=== PATIENT | female | born 1970 | race Caucasian/White ===

== ENCOUNTER → 2017-02-21 | Outpatient (CLI) | payer OTHER ==
[2017-02-21 12:00] LABS: Basophils % (A) 1 %; CHCM 35.1; Eosinophils # (A) 0.1 k/uL (0-0.7); Eosinophils % (A) 1 %; HCT 40.1 % (34.0-46.0); HDW 2.77; HGB 14.1 gm/dL (11.4-16.0); Luc # (Auto) 0.17; Luc % (Auto) 2; Lymphocytes # (A) 1.4 k/uL (1.0-4.8); Lymphocytes % (A) 18 %; MCV 82.8 fL (80.0-100.0); Mean Platelet Volume 7.3; Monocytes # (A) 0.4 k/uL (0-1.0); Monocytes % (A) 5 %; Neutrophils # (A) 5.8 k/uL (1.3-7.7); Neutrophils % (A) 74 %; RBC 4.84 m/uL (3.80-5.40); WBC 7.9 k/uL (3.8-10.6); WBC (Perox) 8.28
== END | disposition home or self-care (01) ==
LOC: LABWHC1 11:20
PROVIDERS: ATTEND Family Medicine
DX: R63.5 Abnormal weight gain (principal)
CPT/HCPCS: 36415; 85025

== ENCOUNTER 2017-02-26 15:00 | Emergency (ER) | payer OTHER ==
--- NOTE | 2017-02-26 16:03 | ED ---
GI Bleed HPI - General Source: patient, RN notes reviewed Mode of arrival: ambulatory Limitations: no limitations - History of Present Illness MD complaint: gross hematochezia <Edmundo Wolfe - Last Filed: 02/26/17 17:23> <Luis Angel Trujillo - Last Filed: 02/26/17 17:31> - General Chief complaint: GI Bleed Stated complaint: Abd Pain Time Seen by Provider: 02/26/17 15:30 - History of Present Illness Initial comments: This is a 46-year-old female who is currently in the process of being worked up for lupus who is had some abdominal issues over the years who complains the onset of bright red blood in the toilet today. She also is had left lower quadrant abdominal pain. She does have a family history of diverticulitis and diverticulosis but she has never had this herself. She also had a colonoscopy years ago she states which apparently was unremarkable. She denies any fevers chills nausea vomiting sweats she does have a history of some hemorrhoids but does not know whether this is where the blood is coming from. (Edmundo Wolfe) - Related Data Home Medications Medication Instructions Recorded Confirmed Ergocalciferol [Vitamin D2] 50,000 unit PO TU 02/26/17 02/26/17 Mupirocin 2% Oint [Bactroban 2% 1 applic TOPICAL TID 02/26/17 02/26/17 Oint] Allergies Allergy/AdvReac Type Severity Reaction Status Date / Time amoxicillin Allergy Rash/Hives Verified 02/26/17 16:30 mold Allergy Rash/Hives Verified 02/26/17 16:30 tomato Allergy Rash/Hives Verified 02/26/17 16:30 prochlorperazine edisylate AdvReac Severe Anxiety Verified 02/26/17 16:30 [From Compazine] prochlorperazine maleate AdvReac Severe Anxiety Verified 02/26/17 16:30 [From Compazine] Milk Containing Products AdvReac Nausea & Verified 02/26/17 16:30 Vomiting & Diarrhea Review of Systems ROS Other: All systems not noted in ROS Statement are negative. <Edmundo Wolfe - Last Filed: 02/26/17 17:23> ROS Other: All systems not noted in ROS Statement are negative. <Luis Angel Trujillo - Last Filed: 02/26/17 17:31> ROS Statement: Those systems with pertinent positive or pertinent negative responses have been documented in the HPI. Past Medical History Additional Past Medical History / Comment(s): Low vitamin D History of Any Multi-Drug Resistant Organisms: None Reported Past Surgical History: Orthopedic Surgery Past Psychological History: No Psychological Hx Reported Smoking Status: Never smoker Past Alcohol Use History: None Reported Past Drug Use History: None Reported <Edmundo Wolfe - Last Filed: 02/26/17 17:23> General Exam Limitations: no limitations General appearance: alert, in no apparent distress Head exam: Present: atraumatic, normocephalic, normal inspection Eye exam: Present: normal appearance, PERRL, EOMI. Absent: scleral icterus, conjunctival injection, periorbital swelling ENT exam: Present: normal exam, mucous membranes moist Neck exam: Present: normal inspection. Absent: tenderness, meningismus, lymphadenopathy Respiratory exam: Present: normal lung sounds bilaterally. Absent: respiratory distress, wheezes, rales, rhonchi, stridor Cardiovascular Exam: Present: regular rate, normal rhythm, normal heart sounds. Absent: systolic murmur, diastolic murmur, rubs, gallop, clicks GI/Abdominal exam: Present: soft, tenderness (Some left lower quadrant tenderness palpation of guarding rebound), normal bowel sounds. Absent: distended, guarding, rebound, rigid Rectal exam: Present: heme (+) stool, other (External hemorrhoids are present are nontender to palpation. No evidence of any bleeding at this time from the hemorrhoids. There was some gross blood on my fingertip upon rectal exam using a gloved hand.) Extremities exam: Present: normal inspection, full ROM, normal capillary refill. Absent: tenderness, pedal edema, joint swelling, calf tenderness Back exam: Present: normal inspection Neurological exam: Present: alert, oriented X3, CN II-XII intact Psychiatric exam: Present: normal affect, normal mood Skin exam: Present: warm, dry, intact, normal color. Absent: rash <Edmundo Wolfe - Last Filed: 02/26/17 17:23> <Luis Angel Trujillo - Last Filed: 02/26/17 17:31> - General Exam Comments Initial Comments: This is a well-developed well-nourished awake alert oriented 3 female (Edmundo Wolfe) Course <Edmundo Wolfe - Last Filed: 02/26/17 17:23> <Luis Angel Trujillo - Last Filed: 02/26/17 17:31> Vital Signs 02/26/17 15:03 Temperature 97.5 F L Pulse Rate 85 Respiratory 20 Rate Blood Pressure 147/86 O2 Sat by Pulse 99 Oximetry - Reevaluation(s) Reevaluation #1: 02/26/17 17:23 The patient is endorsed to Dr. Trujillo who will make the final disposition (Edmundo Wolfe) Medical Decision Making - Lab Data Result diagrams: 02/26/17 15:25 02/26/17 15:25 <Edmundo Wolfe - Last Filed: 02/26/17 17:23> - Lab Data Result diagrams: 02/26/17 15:25 02/26/17 15:25 <Luis Angel Trujillo - Last Filed: 02/26/17 17:31> - Medical Decision Making CT shows no acute findings. I went back into reevaluate the patient she stated she was feeling very good her pain was reasonable and she felt as if she could go home and follow up with her primary medical care doctor. (Luis Angel Trujillo) - Lab Data Lab Results 02/26/17 02/26/17 02/26/17 Range/Units 15:25 15:25 15:25 WBC 7.7 (3.8-10.6) k/uL RBC 4.74 (3.80-5.40) m/uL Hgb 13.4 (11.4-16.0) gm/dL Hct 39.0 (34.0-46.0) % MCV 82.3 (80.0-100.0) fL MCH 28.2 (25.0-35.0) pg MCHC 34.3 (31.0-37.0) g/dL RDW 13.0 (11.5-15.5) % Plt Count 286 (150-450) k/uL Neutrophils % 73 % Lymphocytes % 20 % Monocytes % 4 % Eosinophils % 1 % Basophils % 1 % Neutrophils # 5.6 (1.3-7.7) k/uL Lymphocytes # 1.5 (1.0-4.8) k/uL Monocytes # 0.3 (0-1.0) k/uL Eosinophils # 0.1 (0-0.7) k/uL Basophils # 0.0 (0-0.2) k/uL PT (9.0-12.0) sec INR (<1.1) APTT (22.0-30.0) sec Sodium 142 (137-145) mmol/L Potassium 3.6 (3.5-5.1) mmol/L Chloride 105 (98-107) mmol/L Carbon Dioxide 24 (22-30) mmol/L Anion Gap 13 mmol/L BUN 15 (7-17) mg/dL Creatinine 0.69 (0.52-1.04) mg/dL Est GFR (MDRD) Af Amer >60 (>60 ml/min/1.73 sqM) Est GFR (MDRD) Non-Af >60 (>60 ml/min/1.73 sqM) Glucose 101 H (74-99) mg/dL Calcium 9.4 (8.4-10.2) mg/dL Total Bilirubin 0.5 (0.2-1.3) mg/dL AST 18 (14-36) U/L ALT 26 (9-52) U/L Alkaline Phosphatase 60 (38-126) U/L Total Creatine Kinase 40 (30-135) U/L CK-MB (CK-2) 0.4 (0.0-2.4) ng/mL CK-MB (CK-2) Rel Index 1.0 Troponin I <0.012 (0.000-0.034) ng/mL Total Protein 7.3 (6.3-8.2) g/dL Albumin 4.2 (3.5-5.0) g/dL Amylase 65 (30-110) U/L Lipase 152 (23-300) U/L Stool Occult Blood (Negative) 02/26/17 02/26/17 Range/Units 15:25 15:25 WBC (3.8-10.6) k/uL RBC (3.80-5.40) m/uL Hgb (11.4-16.0) gm/dL Hct (34.0-46.0) % MCV (80.0-100.0) fL MCH (25.0-35.0) pg MCHC (31.0-37.0) g/dL RDW (11.5-15.5) % Plt Count (150-450) k/uL Neutrophils % % Lymphocytes % % Monocytes % % Eosinophils % % Basophils % % Neutrophils # (1.3-7.7) k/uL Lymphocytes # (1.0-4.8) k/uL Monocytes # (0-1.0) k/uL Eosinophils # (0-0.7) k/uL Basophils # (0-0.2) k/uL PT 10.9 (9.0-12.0) sec INR 1.1 (<1.1) APTT 25.9 (22.0-30.0) sec Sodium (137-145) mmol/L Potassium (3.5-5.1) mmol/L Chloride (98-107) mmol/L Carbon Dioxide (22-30) mmol/L Anion Gap mmol/L BUN (7-17) mg/dL Creatinine (0.52-1.04) mg/dL Est GFR (MDRD) Af Amer (>60 ml/min/1.73 sqM) Est GFR (MDRD) Non-Af (>60 ml/min/1.73 sqM) Glucose (74-99) mg/dL Calcium (8.4-10.2) mg/dL Total Bilirubin (0.2-1.3) mg/dL AST (14-36) U/L ALT (9-52) U/L Alkaline Phosphatase (38-126) U/L Total Creatine Kinase (30-135) U/L CK-MB (CK-2) (0.0-2.4) ng/mL CK-MB (CK-2) Rel Index Troponin I (0.000-0.034) ng/mL Total Protein (6.3-8.2) g/dL Albumin (3.5-5.0) g/dL Amylase (30-110) U/L Lipase (23-300) U/L Stool Occult Blood Positive H (Negative) Disposition <Edmundo Wolfe - Last Filed: 02/26/17 17:23> Time of Disposition: 17:31 <Luis Angel Trujillo - Last Filed: 02/26/17 17:31> Clinical Impression: Rectal bleeding Disposition: HOME SELF-CARE Instructions: Gastrointestinal Bleeding (ED) Referrals: Catie Blackmon MD [Primary Care Provider] - 1-2 days
[2017-02-26 16:08] LABS: Basophils % (A) 1 %; CH 28.7; Eosinophils # (A) 0.1 k/uL (0-0.7); Eosinophils % (A) 1 %; HDW 2.73; HGB 13.4 gm/dL (11.4-16.0); Luc # (Auto) 0.14; Luc % (Auto) 2; Lymphocytes # (A) 1.5 k/uL (1.0-4.8); Lymphocytes % (A) 20 %; MCH 28.2 pg (25.0-35.0); MCHC 34.3 g/dL (31.0-37.0); MCV 82.3 fL (80.0-100.0); Mean Platelet Volume 6.8; Monocytes # (A) 0.3 k/uL (0-1.0); Monocytes % (A) 4 %; Neutrophils # (A) 5.6 k/uL (1.3-7.7); Neutrophils % (A) 73 %; RBC 4.74 m/uL (3.80-5.40); WBC 7.7 k/uL (3.8-10.6); WBC (Perox) 7.81
[2017-02-26 16:17] LABS: ALT 26 U/L (9-52); AST 18 U/L (14-36); Alkaline Phosphatase 60 U/L (38-126); Amylase 65 U/L (30-110); Anion Gap 13 mmol/L; Blood Urea Nitrogen 15 mg/dL (7-17); Calcium 9.4 mg/dL (8.4-10.2); Carbon Dioxide 24 mmol/L (22-30); Chloride 105 mmol/L (98-107); Glucose 101 mg/dL (74-99); INR 1.1 (<1.1); Non-African American GFR(MDRD) >60 (>60 ml/min/1.73 sqM); Partial Thromboplastin Time 25.9 sec (22.0-30.0); Potassium 3.6 mmol/L (3.5-5.1); Prothrombin Time 10.9 sec (9.0-12.0); Sodium 142 mmol/L (137-145); Total Bilirubin 0.5 mg/dL (0.2-1.3); Total Protein 7.3 g/dL (6.3-8.2)
--- NOTE | 2017-02-26 16:20 | XR ---
EXAMINATION TYPE: XR abdomen 1V DATE OF EXAM ORDERED: 02/26/2017 4:14 PM HISTORY: Pain. COMPARISON: Previous study dated 05/23/2009. FINDINGS: The abdominal gas pattern is normal. There is no evidence of obstruction or free air. No u nusual calcifications are seen. IMPRESSION: NORMAL ABDOMEN.
--- NOTE | 2017-02-26 16:21 | XR ---
EXAMINATION TYPE: XR chest 2V DATE OF EXAM ORDERED: 02/26/2017 4:14 PM HISTORY: cough. REFERENCE: None. FINDINGS: The lungs are clear. Pleural spaces are clear. Heart size is normal. IMPRESSION: NORMAL CHEST.
[2017-02-26] MEDS ORDERED: RX INFO: IV CONTRAST WAS GIVEN 1 EACH MISC MISCELLANE PRN (16:41)
[2017-02-26 16:49] LABS: Creatine Kinase 40 U/L (30-135)
[2017-02-26] MEDS ORDERED: DICYCLOMINE 10 MG/ML 2 ML AMP IM STA (16:54)
[2017-02-26 17:01] LABS: Creatine Kinase MB 0.4 ng/mL (0.0-2.4); Troponin I <0.012 ng/mL (0.000-0.034)
--- NOTE | 2017-02-26 17:22 | CT ---
EXAMINATION TYPE: CT abdomen pelvis w con DATE OF EXAM: 02/26/2017 5:12 PM HISTORY: Bright red rectal bleeding today. Cramping and bloating. CT DLP: 1407.30mGycm Automated Exposure Control for Dose Reduction was Utilized. CONTRAST: CT scan of the abdomen and pelvis is performed without oral but with IV Contrast, patient injected wi th 100 mL of Omnipaque 300. COMPARISON: None. FINDINGS: LUNG BASES: No significant abnormality is appreciated. LIVER/GB: There are several simple appearing thin-walled cysts scattered throughout the liver. PANCREAS: No significant abnormality is seen. SPLEEN: Spleen is enlarged measuring 14.2 cm on long axis on axial image 18. There is 1 cm splenule i n the splenic hilum on axial image 23. ADRENALS: No significant abnormality is seen. KIDNEYS: There are subcentimeter low dense lesion anteriorly lower pole level right kidney on series 7 image 39 is too small to further characterize per presumed benign. BOWEL: The evaluation of bowel is suboptimal due to lack of enteric contrast. There is debris filled stomach suggesting recent meal ingestion. There is no suspicious small or large bowel dilatation seen . Normal-appearing appendix is seen from cecum. There is mild wall thickening in the transverse colon favor product of poor distention but a colitis is not entirely excluded. Clinical correlation advise d. UTERUS/ADNEXA: Left-sided pelvic phlebolith is noted. LYMPH NODES: No greater than 1cm abdominal or pelvic lymph nodes are appreciated. OSSEOUS STRUCTURES: No significant abnormality is seen. OTHER: No significant additional abnormality is seen. IMPRESSION: No significant acute finding is clearly seen to account for patient's clinical symptoms. Cannot entirely exclude mild colitis involving the transverse colon though finding is more likely on basis of poor distention. Clinical correlation advised.
[2017-02-26 17:48] VITALS: BP 132/68; PULSE 80; RESP 16; TEMP 98
== END 2017-02-26 18:02 | disposition home or self-care (01) ==
LOC: EC 15:00
DX: K64.4 Residual hemorrhoidal skin tags (principal); R10.32 Left lower quadrant pain; Z79.899 Other long term (current) drug therapy; Z88.0 Allergy status to penicillin; Z88.8 Allergy status to other drugs, medicaments and biological substances; Z91.011 Allergy to milk products; Z91.018 Allergy to other foods; Z91.09 Other allergy status, other than to drugs and biological substances; Z86.39 Personal history of other endocrine, nutritional and metabolic disease; Z83.79 Family history of other diseases of the digestive system; Z98.890 Other specified postprocedural states
CPT/HCPCS: 99285; 96372; 36415; 86900; 86901; 80053; 82150; 82550; 82553; 83690; 84484; 85025; 85610; 85730; 86850; 82272; 71020; 74000; 74177; J0500; Q9967

== ENCOUNTER → 2017-03-12 | Outpatient (CLI) | payer OTHER ==
--- NOTE | 2017-03-12 10:42 | XR ---
EXAMINATION TYPE: XR Hip Complete RT DATE OF EXAM: 03/12/2017 10:20 AM COMPARISON: NONE HISTORY: Pain TECHNIQUE: 2 views submitted FINDINGS: There is no evidence of erosive change or acute fracture. IMPRESSION: 1. No evidence of acute fracture or dislocation. If symptoms persist consider MRI.
--- NOTE | 2017-03-12 10:43 | XR ---
EXAM TYPE: LUMBAR SPINE X RAY SERIES COMPARISON: NONE HISTORY: Pain TECHNIQUE: 4 views are submitted. FINDINGS: Alignment is anatomic. The pedicles are intact. The transverse processes are intact. There is no s pondylolysis or spondylolisthesis. Hypertrophic changes are seen throughout the vertebral column. Th ere is facet arthropathy at L3-4, L4-5 and L5-S1. IMPRESSION: 1. Multilevel hypertrophic change and facet arthropathy. Consider MRI of the lumbar spine..
== END | disposition home or self-care (01) ==
LOC: RADXRMAIN 09:59
PROVIDERS: ATTEND Family Medicine
DX: M46.96 Unspecified inflammatory spondylopathy, lumbar region (principal); M46.97 Unspecified inflammatory spondylopathy, lumbosacral region
CPT/HCPCS: 72110; 73502

== ENCOUNTER → 2017-03-20 | Outpatient (CLI) | payer OTHER ==
[2017-03-20 11:43] LABS: Hepatitis B Surface Ag Index 0.07
[2017-03-20 12:00] LABS: Hepatitis C Virus IgG Index 0.04
[2017-03-20 12:19] LABS: Hepatitis C Virus IgG Ab Negative (Negative)
[2017-03-21 07:56] LABS: HIV-1/HIV-2 Ab Screen NONREAC (NON REAC)
[2017-03-21 15:07] LABS: Hepatits C Virus RNA, Quant <12 IU/mL (<12); LOG HCV IU/mL <1.08 (<1.08)
== END | disposition home or self-care (01) ==
LOC: LABWHC1 10:09
PROVIDERS: ATTEND Family Medicine
DX: L81.8 Other specified disorders of pigmentation (principal)
CPT/HCPCS: 36415; 86780; 86803; 87340; 87389; 87522

== ENCOUNTER → 2017-04-18 | Outpatient (CLI) | payer OTHER ==
--- NOTE | 2017-04-18 09:25 | MR ---
EXAMINATION TYPE: MR lumbar spine wo con DATE OF EXAM: 04/18/2017 9:16 AM COMPARISON: NONE HISTORY: lumbago TECHNIQUE: T1 and T2 axial and sagittal images of the lumbar spine are submitted. FINDINGS: There is no abnormal signal seen within the visualized spinal cord or paraspinal soft tissu es. Simple left renal cyst noted. At L1-2 there is right paracentral disc bulging but no canal stenosis or foraminal encroachment. At L2-3 there is right paracentral disc bulging with mild effacement of thecal sac. Mild hypertrophy of the facets. No Canal stenosis. Neural foramina are preserved. At L3-4 there is extensive facet arthropathy with no canal stenosis or focal herniation. No neural fo raminal encroachment. At L4-5 there is broad-based central disc bulging but no canal stenosis or foraminal encroachment. De generative disc disease. At L5-S1 there is right paracentral small disc protrusion but no definite nerve root contact or mike inal encroachment. IMPRESSION: 1. Right paracentral tiny disc protrusion L5-S1 but no foraminal encroachment or canal stenosis. 2. Multilevel mild degenerative disc disease with multilevel facet arthropathy. No Canal stenosis. 3. Disc bulging L4-5, L1-L2 and L2-3 with no evidence of nerve root impingement.
== END | disposition home or self-care (01) ==
LOC: RADMRIMAIN 08:45
PROVIDERS: ATTEND Family Medicine
DX: M51.27 Other intervertebral disc displacement, lumbosacral region (principal); M51.36 Other intervertebral disc degeneration, lumbar region; M46.96 Unspecified inflammatory spondylopathy, lumbar region
CPT/HCPCS: 72148

== ENCOUNTER 2017-06-20 09:38 | Day surgery (SDC) | payer OTHER ==
[2017-06-18 10:45] VITALS: BMI 33.0
[~2017-06-20 09:38] MED LIST: LACTATED RINGERS 1,000 ML IV SCH
[2017-06-20 10:08] VITALS: PULSE 78; RESP 18; TEMP 98.3
[2017-06-20] MEDS ORDERED: LACTATED RINGERS 1,000 ML IV ONE (10:19)
[2017-06-20] MEDS ORDERED: LIDOCAINE 1% 20 ML VIAL (10MG/ML) FOR IV START INTRADERMA ONE (10:20)
[2017-06-20] MEDS ORDERED: PROPOFOL 10 MG/ML 20 ML VIAL IV ONE (11:01)
--- NOTE | 2017-06-20 11:20 | P.PCN ---
Date of Procedure: 06/20/17 Preoperative Diagnosis: Postoperative Diagnosis: Procedure(s) Performed: BRIEF HISTORY: Patient is a 47-year-old pleasant female, scheduled for an elective colonoscopy as a part of abdominal pain, change in bowel habits and intermittent rectal bleeding for the last several months duration. PROCEDURE PERFORMED: Colonoscopy. PREOPERATIVE DIAGNOSIS: Change in bowel habits, abdominal pain and intermittent rectal bleeding. IV sedation per Anesthesia. PROCEDURE: After informed consent was obtained, the patient, was brought into the endoscopy unit. IV sedation was administered by Anesthesia under continuous monitoring. Digital rectal examination was normal. Initially the Olympus CF- 160 flexible video colonoscope was then inserted in the rectum, gradually advanced into the cecum without any difficulty. Careful examination was performed as the scope was gradually being withdrawn. Ileocecal valve and the appendiceal orifice were visualized and appeared normal. Prep was excellent. Mucosa of the cecum, ascending colon, transverse colon, descending colon, sigmoid colon, and rectum appeared normal. Retroflexion was performed in the rectum and no lesions were seen. The patient tolerated the procedure well. IMPRESSION: Normal-appearing colon from rectum to cecum with no evidence of colorectal neoplasia . RECOMMENDATIONS: Findings of this examination were discussed with the patient as well as her family. She was advised to be a high-fiber diet, take fiber supplements a regular basis and avoid straining and constipation. She can have a repeat colonoscopy in 10 years. Implants: Indications for Procedure: Operative Findings: Description of Procedure:
[2017-06-20 11:59] VITALS: BP 134/72
== END 2017-06-20 12:15 | disposition home or self-care (01) ==
LOC: ORWHC2ENDO 09:38
PROVIDERS: ATTEND Internal Medicine Gastroenterology
DX: R10.9 Unspecified abdominal pain (principal); R19.4 Change in bowel habit; K62.5 Hemorrhage of anus and rectum; M19.90 Unspecified osteoarthritis, unspecified site; Z79.899 Other long term (current) drug therapy; Z88.0 Allergy status to penicillin; Z88.8 Allergy status to other drugs, medicaments and biological substances
CPT/HCPCS: 81025; 45378; J2704

== ENCOUNTER 2018-02-01 08:26 | Emergency (ER) | payer OTHER ==
[2018-02-01 08:31] VITALS: RESP 16; TEMP 98.5
[2018-02-01] MEDS ORDERED: PROPARACAINE 0.5% OPHTH DROPS 15 ML BTL LEFT EYE STA (08:51)
--- NOTE | 2018-02-01 08:53 | ED ---
Eye Problem HPI - General Chief complaint: Eye Problems Stated complaint: LEFT EYE PAIN, LEFT HEAD PAIN Time Seen by Provider: 02/01/18 08:34 Source: patient, RN notes reviewed, old records reviewed Mode of arrival: ambulatory Limitations: no limitations - History of Present Illness Initial comments: This patient is a 47-year-old female presents emergency Department chief complaint of a few days of left eye pain. She reports that she's noticed a white spot over her visual field over the past day. She does wear contacts. She states she's been wearing her contacts off and on for the past week. Her eye is sensitive to light. She's been undergoing sinusitis, was on Levaquin and finished her antibiotics a few days ago. She reports that she still having some ear popping and congestion. She is concerned that maybe her eye pain was related to her sinus congestion. Patient states she's had no fever or chills. She reports that she has no pain or constriction of extraocular eye movements. - Related Data Home Medications Medication Instructions Recorded Confirmed Ergocalciferol [Vitamin D2] 50,000 unit PO Q14D 02/26/17 02/01/18 Previous Rx's Medication Instructions Recorded Moxifloxacin [Vigamox 0.3%] 1 drop LEFT EYE Q2H #1 bottle 02/01/18 Allergies Allergy/AdvReac Type Severity Reaction Status Date / Time amoxicillin Allergy Rash/Hives Verified 02/01/18 09:33 mold Allergy Rash/Hives Verified 02/01/18 09:33 tomato Allergy Rash/Hives Verified 02/01/18 09:33 prochlorperazine edisylate AdvReac Severe Anxiety Verified 02/01/18 09:33 [From Compazine] prochlorperazine maleate AdvReac Severe Anxiety Verified 02/01/18 09:33 [From Compazine] Milk Containing Products AdvReac Nausea & Verified 02/01/18 09:33 Vomiting & Diarrhea Review of Systems ROS Statement: Those systems with pertinent positive or pertinent negative responses have been documented in the HPI. ROS Other: All systems not noted in ROS Statement are negative. Past Medical History Additional Past Medical History / Comment(s): Low vitamin D. RECENT RECTAL BLEEDING AND ABD. PAIN History of Any Multi-Drug Resistant Organisms: None Reported Past Surgical History: Orthopedic Surgery Additional Past Surgical History / Comment(s): RT GREAT TOE PIN AND BUNIONECTOMY. COLONOSCOPY Past Anesthesia/Blood Transfusion Reactions: No Reported Reaction Past Psychological History: No Psychological Hx Reported Smoking Status: Never smoker - Past Family History Mother Family Medical History: No Reported History General Exam - General Exam Comments Initial Comments: This patient is a 47-year-old female. No distress. Limitations: no limitations General appearance: alert, in no apparent distress Head exam: Present: atraumatic, normocephalic, normal inspection Eye exam: Present: PERRL, EOMI, conjunctival injection (Left eye conjunctival injection. Evidence of what appears to be a corneal ulcer at the 12 o'clock position of the eye.). Absent: normal appearance, scleral icterus, periorbital swelling Expanded Eyelids: Erythema: Left (conjunctival injection) Pupils: Regular, Round: Bilateral Sclera/Conjunctival: Injection: Left (Patient has 2mm corneal ulcerat at 12 oclock position) Anterior chamber: Normal Inspection: Bilateral Posterior chamber: Deferred: Bilateral Visual acuity (R) = 20/: 20 Visual acuity (L) = 20/: 50 IOP (R) in mmH IOP (L) in mmH IOP measured with: [employer] ENT exam: Present: normal exam, mucous membranes moist Neck exam: Present: normal inspection. Absent: tenderness, meningismus, lymphadenopathy Respiratory exam: Present: normal lung sounds bilaterally. Absent: respiratory distress, wheezes, rales, rhonchi, stridor Cardiovascular Exam: Present: regular rate, normal rhythm, normal heart sounds. Absent: systolic murmur, diastolic murmur, rubs, gallop, clicks GI/Abdominal exam: Present: soft, normal bowel sounds. Absent: distended, tenderness, guarding, rebound, rigid Back exam: Present: normal inspection Neurological exam: Present: alert, oriented X3, CN II-XII intact Psychiatric exam: Present: normal affect, normal mood Skin exam: Present: warm, dry, intact, normal color. Absent: rash Course Vital Signs 02/01/18 02/01/18 08:27 10:04 Temperature 98.5 F Pulse Rate 89 70 Respiratory 16 16 Rate Blood Pressure 144/63 138/78 O2 Sat by Pulse 97 98 Oximetry Medical Decision Making - Medical Decision Making This patient is a 47-year-old female presents emergency Department chief complaint of a few days of left eye pain. She reports that she's noticed a white spot over her visual field over the past day. She does wear contacts. She states she's been wearing her contacts off and on for the past week. Her eye is sensitive to light. She's been undergoing sinusitis, was on Levaquin and finished her antibiotics a few days ago. Without slit lamp, I am able to visualize a 2mm ulceration at 12 oclock position of eye. Visual acuity is 20/50 L eye, 20/20 R eye. Patient has no pain with EOM. Normal IOP. Slit lamp shows no hyphema, or abnormalities in anterior chamber. Patient case discussed with Dr. Tejada, whom discussed with Dr. Dodd. He recommends vigamox drops every 2 hours, and will see patient in morning. Given Vigamox in ED, after Cipro drops previously ordered. Patient understands treatment plan and will comply, return parameters discussed. Disucssed no contacts. Patient understands treatment plan and will comply. Disposition Clinical Impression: Corneal ulcer of left eye, Uses contact lenses Disposition: HOME SELF-CARE Condition: Good Instructions: Corneal Ulcer (ED) Additional Instructions: Patient needs to follow-up promptly with community organization aide tomorrow morning. Return to the emergency department if any alarming signs or symptoms occur. Continue to take decongestant medications. Prescriptions: Moxifloxacin [Vigamox 0.3%] 1 drop LEFT EYE Q2H #1 bottle Referrals: Catie Blackmon MD [Primary Care Provider] - 1-2 days Charly Dodd MD [STAFF PHYSICIAN] - 1-2 days Time of Disposition: 09:53
[2018-02-01] MEDS ORDERED: CIPROFLOXACIN 0.3% OPHTH SOLN 5 ML BTL LEFT EYE STA (08:54)
[2018-02-01] MEDS ORDERED: MOXIFLOXACIN HCL 0.5% DROPS 3 ML BTL LEFT EYE ONE (09:35)
[2018-02-01 10:05] VITALS: BP 138/78; PULSE 70
== END 2018-02-01 09:23 | disposition home or self-care (01) ==
LOC: EC 08:26
DX: H16.002 Unspecified corneal ulcer, left eye (principal); Z97.3 Presence of spectacles and contact lenses; Z79.899 Other long term (current) drug therapy; Z88.0 Allergy status to penicillin; Z88.8 Allergy status to other drugs, medicaments and biological substances; Z91.011 Allergy to milk products; Z91.018 Allergy to other foods
CPT/HCPCS: 99283

== ENCOUNTER → 2018-04-08 | Outpatient (CLI) | payer OTHER ==
[2018-04-08 13:11] LABS: Basophils % (A) 1 %; Eosinophils # (A) 0.1 k/uL (0-0.7); Eosinophils % (A) 1 %; HCT 39.6 % (34.0-46.0); HGB 13.9 gm/dL (11.4-16.0); Lymphocytes # (A) 1.4 k/uL (1.0-4.8); Lymphocytes % (A) 17 %; MCH 27.9 pg (25.0-35.0); MCHC 35.1 g/dL (31.0-37.0); MCV 79.6 fL (80.0-100.0); Mean Platelet Volume 6.8; Monocytes # (A) 0.4 k/uL (0-1.0); Monocytes % (A) 4 %; Neutrophils # (A) 6.2 k/uL (1.3-7.7); Neutrophils % (A) 75 %; Platelet Count 287 k/uL (150-450); RBC 4.98 m/uL (3.80-5.40); RDW 12.6 % (11.5-15.5); WBC 8.2 k/uL (3.8-10.6)
[2018-04-08 13:41] LABS: ALT 29 U/L (9-52); AST 17 U/L (14-36); Albumin 4.1 g/dL (3.5-5.0); Alkaline Phosphatase 73 U/L (38-126); Anion Gap 12 mmol/L; Blood Urea Nitrogen 14 mg/dL (7-17); Calcium 9.5 mg/dL (8.4-10.2); Carbon Dioxide 25 mmol/L (22-30); Chloride 103 mmol/L (98-107); Glucose 88 mg/dL (74-99); Potassium 3.9 mmol/L (3.5-5.1); Sodium 140 mmol/L (137-145); Total Bilirubin 0.5 mg/dL (0.2-1.3); Total Protein 6.8 g/dL (6.3-8.2)
--- NOTE | 2018-04-08 14:57 | P.HPOB ---
History of Present Illness H&P Date: 04/08/18 Chief Complaint: The patient is here for her routine gynecologic exam and mammogram. This is a 47-year-old with an LMP of 03/31/2018. The patient states is been about one half years since her last pelvic exam. She is having regular monthly menstrual periods. She has been experiencing weight gain, fatigue, joint pain and exhaustion. She believes she is gained about 2 to 3 pounds per month over the last one year. She also seems to feel cold when other people are not cold. She is without gynecologic complaints. Review of Systems She believes she has gained about 30 pounds over the past year. She denies respiratory, cardiac, or G.I. problems. Past Medical History Additional Past Medical History / Comment(s): Low vitamin D. Fibromyalgia. 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 History of Any Multi-Drug Resistant Organisms: None Reported, MRSA (Buttock abscess in the past) Past Surgical History: Orthopedic Surgery Additional Past Surgical History / Comment(s): RT GREAT TOE PIN AND BUNIONECTOMY. COLONOSCOPY Past Anesthesia/Blood Transfusion Reactions: No Reported Reaction Past Psychological History: No Psychological Hx Reported Smoking Status: Never smoker Past Alcohol Use History: Occasional (1 to 2 per week) Past Drug Use History: Marijuana Additional History: She works for the [employer] in [facility]. She is single and has been with her boyfriend since approximately October 2017. She does not live with him. - Past Family History Mother Family Medical History: Asthma Additional Family Medical History / Comment(s): Cardiac valve problem. Father Family Medical History: Hypertension Additional Family Medical History / Comment(s): Great aunt had breast cancer. Medications and Allergies Home Medications Medication Instructions Recorded Confirmed Type Ergocalciferol [Vitamin D2] 50,000 unit PO Q14D 02/26/17 02/01/18 History Moxifloxacin [Vigamox 0.3%] 1 drop LEFT EYE Q2H #1 bottle 02/01/18 Rx Allergies Allergy/AdvReac Type Severity Reaction Status Date / Time amoxicillin Allergy Rash/Hives Verified 02/01/18 09:33 mold Allergy Rash/Hives Verified 02/01/18 09:33 tomato Allergy Rash/Hives Verified 02/01/18 09:33 prochlorperazine edisylate AdvReac Severe Anxiety Verified 02/01/18 09:33 [From Compazine] prochlorperazine maleate AdvReac Severe Anxiety Verified 02/01/18 09:33 [From Compazine] Milk Containing Products AdvReac Nausea & Verified 02/01/18 09:33 Vomiting & Diarrhea Exam - Vital Signs Vital signs: BP 122/77, height 5'6", weight 229 pounds, BMI 37, temperature 98.4, pulse 79. This is a well-developed well-nourished white female who is alert and oriented times 3 in no acute distress. HEENT: Within normal limits. NECK: Supple without mass or thyromegaly. CHEST AND LUNGS: Clear to auscultation. HEART: Regular rate and rhythm. BREASTS: Are without mass or discharge. AXILLARY EXAM: Negative for adenopathy. BACK: Negative for CVA tenderness. ABDOMEN: Soft, nontender, without palpable masses. PELVIC EXAM: Normal external genitalia. Cervix and vagina appear normal . Cervix appears multiparous. It does not appear inflamed but was slightly friable upon doing the Pap smear. There is no unusual discharge. There is no evidence of prolapse. The uterus is midposition, nongravid size and nontender. There are no palpable adnexal masses or tenderness. RECTAL EXAM: negative for mass or tenderness and is negative for occult blood. EXTREMITIES: Nontender. IMPRESSION: 1. 47 year old female with multiple nonspecific complaints. The complaints include fatigue, joint pain and weight gain. Differential diagnosis will include thyroid dysfunction, rheumatologic condition and anemia. I doubt these complaints are gynecologically related. I also doubt they are menopausal symptoms since he continues to have regular menses. 2. Normal gynecologic exam. PLAN: 1. Pap smear was performed. 2. Self breast awareness was discussed. 3. Remaining mammogram will be done today. 4. Since the patient has a new partner within the last year, STD screening will be done. This will include GC and Chlamydia testing from the cervix. Also blood tests will include HIV, RPR, hepatitis B surface antigen and hepatitis C antibody. 5. Other blood tests that will be done today will be CBC, TSH and comprehensive chem panel. 6. She will also follow up with her primary care physician about these symptoms. She states she does have an appointment with a warehouse production worker as well. 7. We have discussed control options including barrier methods, hormonal methods, IUD and sterilization. She states she will consider these options and will let me know if she chooses something other than condoms. In the meantime she will use condoms. 8. She will return in one year and PRN. Results Result Diagrams: 04/08/18 12:35 Abnormal Lab Results - Last 24 Hours (Table) 04/08/18 Range/Units 12:35 MCV 79.6 L (80.0-100.0) fL
[2018-04-08 21:12] LABS: HIV AB P24 Non-Reactive (Non-Reactive); HIV P24 AG Non-Reactive (Non-Reactive)
[2018-04-08 21:20] LABS: Hepatitis C IgG Antibody Non-Reactive (Non-Reactive)
--- NOTE | 2018-04-09 10:49 | MM ---
Reason for exam: screening (asymptomatic). Last mammogram was performed 1 year and 8 months ago. History: Patient had first child at age 32. Family history of breast cancer in grandmother and breast cancer in aunt. Took hormonal contraceptives for 19 years. Physical Findings: A clinical breast exam by your physician is recommended on an annual basis and results should be correlated with mammographic findings. MG 3D Screening Mammo W/Cad Bilateral CC and MLO view(s) were taken. Prior study comparison: August 07, 2016, bilateral MG screening mammo w CAD. December 29, 2012, bilateral digital screening mammo w/CAD. The breast tissue is heterogeneously dense. This may lower the sensitivity of mammography. No significant changes when compared with prior studies. ASSESSMENT: Benign, BI-RAD 2 RECOMMENDATION: Routine screening mammogram of both breasts in 1 year.
== END | disposition home or self-care (01) ==
LOC: WWCWWP 10:49
PROVIDERS: ATTEND Obstetrics & Gynecology
DX: Z12.31 Encounter for screening mammogram for malignant neoplasm of breast (principal); R53.83 Other fatigue; Z11.3 Encounter for screening for infections with a predominantly sexual mode of transmission
CPT/HCPCS: 77063; 77067; 80053; 84443; 85025; 86780; 86803; 87340; 87390

== ENCOUNTER → 2019-07-13 | Outpatient (CLI) | payer OTHER ==
[2019-07-13 09:48] VITALS: BP 115/66; PULSE 72; RESP 18; TEMP 98.9; BMI 35.5
--- NOTE | 2019-07-13 10:26 | P.HPOB ---
History of Present Illness H&P Date: 07/13/19 Chief Complaint: The patient is here for her routine gynecologic exam and ma mmogram. This is a 49-year-old with an LMP of 06/14/2019. The patient states her menstrual periods have been regular every month except in March when she missed one period. She has had the minimal hot flashes. She is without gynecologic complaints. She has noticed a chronic rash in the area of her previous MRSA near the buttock. She has also noticed a fatty lump on the inner left thigh. Review of Systems The patient has lost 9 pounds over the last year. She has been trying to exercise regularly. She denies respiratory, cardiac, or G.I. problems. Past Medical History Additional Past Medical History / Comment(s): Low vitamin D. Fibromyalgia. 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 History of Any Multi-Drug Resistant Organisms: MRSA Date of last positivie culture/infection: 2010 MDRO Source:: left buttock Past Surgical History: Orthopedic Surgery Additional Past Surgical History / Comment(s): RT GREAT TOE PIN AND BUNIONECTOMY. COLONOSCOPY Past Anesthesia/Blood Transfusion Reactions: No Reported Reaction Past Psychological History: No Psychological Hx Reported Smoking Status: Former smoker Past Alcohol Use History: Occasional (4 per month) Past Drug Use History: Marijuana (Brief use in the past.) Additional Drug Use History / Comment(s): Brief marijuana use in the past. The patient denies current use (07/13/19). Additional History: She is single and has been with her boyfriend since 2017. She does not live with him. 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 - Past Family History Mother Family Medical History: Asthma Additional Family Medical History / Comment(s): Cardiac valve problem. Father Family Medical History: Hypertension Additional Family Medical History / Comment(s): Great aunt had breast cancer. Medications and Allergies Home Medications Medication Instructions Recorded Confirmed Type Cholecalciferol (Vitamin D3) 10,000 unit PO HS 07/13/19 07/13/19 History [Vitamin D3] Allergies Allergy/AdvReac Type Severity Reaction Status Date / Time amoxicillin Allergy Rash/Hives Verified 07/13/19 09:39 mold Allergy Rash/Hives Verified 07/13/19 09:39 tomato Allergy Rash/Hives Verified 07/13/19 09:39 prochlorperazine edisylate AdvReac Severe Anxiety Verified 07/13/19 09:39 [From Compazine] prochlorperazine maleate AdvReac Severe Anxiety Verified 07/13/19 09:39 [From Compazine] Milk Containing Products AdvReac Nausea & Verified 07/13/19 09:39 Vomiting & Diarrhea Exam Vital Signs Temp Pulse Resp BP 07/13/19 09:41 98.9 F 72 18 115/66 Intake and Output 07/12/19 07/13/19 07/13/19 22:59 06:59 14:59 Other: Weight 99.79 kg Height 5'6", weight 220 pounds, BMI 35.5. This is a well-developed well-nourished heavyset white female who is alert and oriented times 3 in no acute distress. HEENT: Within normal limits. NECK: Supple without mass or thyromegaly. CHEST AND LUNGS: Clear to auscultation. HEART: Regular rate and rhythm. BREASTS: Are without mass or discharge. AXILLARY EXAM: Negative for adenopathy. BACK: Negative for CVA tenderness. ABDOMEN: Soft, nontender, without palpable masses. PELVIC EXAM: Normal external genitalia. Cervix and vagina appear normal. There is no unusual discharge. There is no evidence of prolapse. The uterus is slightly retroverted, nongravid size and nontender. There are no palpable adnexal masses or tenderness. RECTAL EXAM: there are external hemorrhoids which do not appear inflamed. Rectal exam is negative for mass or tenderness and is negative for occult blood. EXTREMITIES: Nontender. There is an area of a rash in an area approximately 5 x 6 cm near the buttocks on the posterior left thigh. There is no exudate. The patient states she has had this rash on and off since she had MRSA years ago. There is a benign appearing like: measuring approximately 2 x 2 cm on the inner left thigh. This is soft and nontender. IMPRESSION: 1. 49-year-old premenopausal female with normal gynecologic exam. 2. Chronic rash on the posterior left thigh. 3. Benign appearing small lipoma on the Internet left thigh. PLAN: 1. Pap smears was deferred since she had a normal one 04/08/2018. 2. Self breast awareness was discussed with the patient. 3. Screening mammogram will be done today. 4. Osteoporosis prevention was discussed. I have stressed the importance of adequate calcium, vitamin D and regular exercise. Recommended amounts of calcium and vitamin D were also discussed. 5. She will follow-up with Dr. Blackmon regarding the chronic rash. 6. I have reassured her regarding the lipoma that this appears very benign and nothing needs to be done about it unless it is bothersome to her or if it is growing. She will follow-up with her primary care physician if it is bothersome or changing. 7. She will keep a menstrual calendar and call if she is having menstrual problems. 8. She was advised to return in one year for her annual well woman exam.
--- NOTE | 2019-07-14 13:41 | MM ---
Reason for exam: screening (asymptomatic). Last mammogram was performed 1 year and 3 months ago. History: Patient had first child at age 32. Family history of breast cancer in grandmother and breast cancer in aunt. Took hormonal contraceptives for 19 years. Physical Findings: A clinical breast exam by your physician is recommended on an annual basis and results should be correlated with mammographic findings. MG Screening Mammo w CAD Bilateral CC and MLO view(s) were taken. Prior study comparison: April 08, 2018, bilateral MG 3d screening mammo w/cad. August 07, 2016, bilateral MG screening mammo w CAD. The breast tissue is heterogeneously dense. This may lower the sensitivity of mammography. No suspicious abnormality on the left. Right upper inner quadrant far posterior depth new focal asymmetry. ASSESSMENT: Incomplete: need additional imaging evaluation, BI-RAD 0 RECOMMENDATION: Special view mammogram of the right breast. If lesion persists on supplemental views, image directed ultrasound is recommended. [facility] will attempt to contact patient to return for supplemental views and ultrasound if indicated.
== END | disposition home or self-care (01) ==
LOC: WWCWWP 09:29
PROVIDERS: ATTEND Obstetrics & Gynecology
DX: Z12.31 Encounter for screening mammogram for malignant neoplasm of breast (principal)
CPT/HCPCS: 77067

== ENCOUNTER → 2019-08-05 | Outpatient (CLI) | payer OTHER ==
--- NOTE | 2019-08-05 11:45 | MM ---
Reason for exam: additional evaluation requested from abnormal screening. Last mammogram was performed 1 month ago. History: Patient had first child at age 32. Family history of breast cancer in grandmother and breast cancer in aunt. Took hormonal contraceptives for 19 years. Physical Findings: Nurse did not find any significant physical abnormalities on exam. MG 3D Work Up W/Cad RT Spot compression CC, spot compression MLO, and LM view(s) were taken of the right breast. Prior study comparison: July 13, 2019, bilateral MG screening mammo w CAD. April 08, 2018, bilateral MG 3d screening mammo w/cad. The breast tissue is heterogeneously dense. This may lower the sensitivity of mammography. The previously seen abnormality resolves on additional views and appears as fibroglandular tissue compatible with summation. No suspicious abnormality. These results were verbally communicated with the patient and result sheet given to the patient on 08/05/19. ASSESSMENT: Negative, BI-RAD 1 RECOMMENDATION: Return to routine screening mammogram schedule for both breasts.
== END | disposition home or self-care (01) ==
LOC: RADMAMWWP 10:33
PROVIDERS: ATTEND Obstetrics & Gynecology
DX: R92.8 Other abnormal and inconclusive findings on diagnostic imaging of breast (principal)
CPT/HCPCS: 77065; G0279; 77061

== ENCOUNTER 2019-10-07 10:21 | Emergency (ER) | payer OTHER ==
[2019-10-07 10:36] VITALS: TEMP 98
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
[2019-10-07] MEDS ORDERED: ACET/COD 300 MG/30 MG STARTER PACK 6 TAB BTL PO STA (11:35)
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
[2019-10-07 12:48] VITALS: BP 117/67; PULSE 76; RESP 16
== END 2019-10-07 12:46 | disposition home or self-care (01) ==
LOC: EC 10:21
DX: S00.11XA Contusion of right eyelid and periocular area, initial encounter (principal); Z88.0 Allergy status to penicillin; Z91.018 Allergy to other foods; Z88.8 Allergy status to other drugs, medicaments and biological substances; Z91.011 Allergy to milk products; Z87.891 Personal history of nicotine dependence; Y04.0XXA Assault by unarmed brawl or fight, initial encounter; Y92.009 Unspecified place in unspecified non-institutional (private) residence as the place of occurrence of the external cause
CPT/HCPCS: 70450; 70486; 99284

== ENCOUNTER → 2021-02-21 | Outpatient (CLI) | payer OTHER | END | disposition home or self-care (01) | LOC: LABWHC1 16:00 | PROVIDERS: ATTEND Family Medicine | DX: Z20.822 Contact with and (suspected) exposure to COVID-19 (principal) | CPT/HCPCS: U0003; C9803 ==

== ENCOUNTER → 2022-12-30 | Outpatient (CLI) | payer OTHER ==
[2022-12-30 15:16] LABS: Basophils # (A) 0.07 X 10*3/uL (0.00-0.10); Basophils % (A) 1.1 %; Eosinophils # (A) 0.18 X 10*3/uL (0.04-0.35); Eosinophils % (A) 2.8 %; HCT 42.3 % (37.2-46.3); HGB 13.9 g/dL (12.0-15.0); Immature Grans, Automated 1.3 %; Lymphocytes # (A) 1.45 X 10*3/uL (0.90-5.00); Lymphocytes % (A) 22.7 %; MCHC 32.9 g/dL (32.0-37.0); MCV 85.1 fL (80.0-97.0); Mean Platelet Volume 10.1 fL (9.5-12.2); Monocytes # (A) 0.43 X 10*3/uL (0.20-1.00); Monocytes % (A) 6.7 %; NRBC Per 100 WBC 0 /100 WBCS (0.0-0.0); Neutrophils # (A) 4.18 X 10*3/uL (1.80-7.70); Neutrophils % (A) 65.4 %; Platelet Count 275 X 10*3/uL (140-440); RBC 4.97 X 10*6/uL (4.10-5.20); RDW 12.5 % (11.5-14.5); WBC 6.39 X 10*3/uL (4.50-10.00)
[2022-12-30 15:53] LABS: ALT 21 U/L (8-44); AST 14 U/L (13-35); African American GFR (CKD) 94.4 (60.0-200.0); Albumin 4.5 g/dL (3.8-4.9); Albumin/Globulin Ratio 1.87 (1.60-3.17); Alkaline Phosphatase 79 U/L (41-126); BUN/Creat Ratio 18.63 Ratio (12.00-20.00); Blood Urea Nitrogen 15.5 mg/dL (9.0-27.0); Calcium 9.6 mg/dL (8.7-10.3); Carbon Dioxide 23.6 mmol/L (20.0-27.5); Chloride 105 mmol/L (96-109); Chol/HDL Ratio 2.88 Ratio; Globulin 2.4 g/dL (1.6-3.3); Glucose 114 mg/dL (70-110); LDL Cholesterol,Calculated 93.2 mg/dL (0.0-131.0); Non-African American GFR(CKD) 81.4 (60.0-200.0); Sodium 141 mmol/L (135-145); VLDL Calculation 16.52 mg/dL (5.00-40.00)
== END | disposition home or self-care (01) ==
LOC: LABWHC1 10:21
PROVIDERS: ATTEND Nurse Practitioner Acute Care
DX: I49.9 Cardiac arrhythmia, unspecified (principal); E78.5 Hyperlipidemia, unspecified; E55.9 Vitamin D deficiency, unspecified; R90.82 White matter disease, unspecified; R94.31 Abnormal electrocardiogram [ECG] [EKG]
CPT/HCPCS: 36415; 80053; 80061; 82306; 82607; 84207; 84439; 84443; 84481; 85025; 93005

== ENCOUNTER → 2023-07-05 | Outpatient (CLI) | payer OTHER ==
--- NOTE | 2023-07-05 10:50 | XR ---
EXAMINATION TYPE: XR chest 2V DATE OF EXAM: 07/05/2023 COMPARISON: 02/26/2017 INDICATION: Cough congestion TECHNIQUE: Frontal and lateral views of the chest are obtained. FINDINGS: The heart size is normal. The pulmonary vasculature is normal. The lungs are clear. IMPRESSION: 1. No acute pulmonary process.
== END | disposition home or self-care (01) ==
LOC: RADXRMAIN 09:50
PROVIDERS: ATTEND Family Medicine
DX: R05.9 Cough, unspecified (principal); R09.89 Other specified symptoms and signs involving the circulatory and respiratory systems
CPT/HCPCS: 71046

== ENCOUNTER → 2023-12-23 | Outpatient (CLI) | payer OTHER ==
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
== END | disposition home or self-care (01) ==
LOC: RADUSWWP 07:41
PROVIDERS: ATTEND Family Medicine
DX: K80.20 Calculus of gallbladder without cholecystitis without obstruction (principal); K76.0 Fatty (change of) liver, not elsewhere classified; K76.89 Other specified diseases of liver
CPT/HCPCS: 76700

== ENCOUNTER → 2024-01-07 | Outpatient (CLI) | payer OTHER ==
--- NOTE | 2024-01-07 17:45 | CT ---
EXAMINATION TYPE: CT abdomen pelvis w con CT DLP: 1971.5 mGycm, Automated exposure control for dose reduction was used. DATE OF EXAM: 01/07/2024 5:20 PM COMPARISON: CT abdomen pelvis most recent from 02/26/2017, 12/23/2023 CLINICAL INDICATION:Female, 53 years old with history of K80.20 CALCULUS OF GALLBLADDER W/O C,R31.29, K76.89; RUQ pain, h/o gallstones, liver cysts TECHNIQUE: Axial CT abdomen pelvis w con;Sagittal and coronal reformats were created on a separate w orkstation. Contrast used:100 mL of Isovue 370 with IV Contrast, (none if empty) Oral contrast used: with Oral Contrast (none if empty) FINDINGS: LOWER CHEST: Unremarkable ABDOMEN LIVER: Multiple simple appearing hepatic cyst. GALLBLADDER AND BILE DUCTS: Nondistended gallbladder No evidence for radiopaque gallstone. Gallstones present on prior ultrasound not well appreciated. PANCREAS: Unremarkable. SPLEEN: Unremarkable. ADRENAL GLANDS: Unremarkable. KIDNEYS AND URETERS: No evidence of hydronephrosis or renal calculus. The ureters are unremarkable. Right inferior pole renal cysts. PELVIS BLADDER: Unremarkable REPRODUCTIVE: Unremarkable. ABDOMEN & PELVIS STOMACH AND BOWEL: No evidence of bowel obstruction. PERITONEUM/RETROPERITONEUM: No evidence of pneumoperitoneum or free fluid. VASCULATURE: No evidence of aortic aneurysm. MUSCULOSKELETAL: No acute osseous abnormalities LYMPH NODES: No gross evidence for lymphadenopathy. SOFT TISSUE/ABDOMINAL WALL: Fat-containing umbilical hernia and ventral wall hernias. IMPRESSION: 1. No acute abdominal process. The gallbladder is within normal limits. Gallstone in the gallbladder neck not appreciated on CT imaging. 2. Simple appearing liver cysts. No follow-up recommended.
== END | disposition home or self-care (01) ==
LOC: RADCTMAIN 15:23
PROVIDERS: ATTEND Family Medicine
DX: K76.89 Other specified diseases of liver (principal); K80.20 Calculus of gallbladder without cholecystitis without obstruction; R31.29 Other microscopic hematuria
CPT/HCPCS: 74177; Q9967

== ENCOUNTER 2024-04-01 12:47 | Day surgery (SDC) | payer OTHER ==
--- NOTE | 2024-04-01 09:49 | P.GSHP ---
History of Present Illness H&P Date: 04/01/24 CHIEF COMPLAINT: Cholecystitis HISTORY OF PRESENT ILLNESS: The patient is a 53-year-old female who presents with history of epigastric including right upper quadrant abdominal pain. She underwent diagnostic studies for her gallbladder. Separately her clinical picture was consistent with cholecystitis. Now she presents for surgical intervention. PAST MEDICAL HISTORY: Please see list PAST SURGICAL HISTORY: Please see list MEDICATIONS: Please see list ALLERGIES: Please see list SOCIAL HISTORY: Please see list FAMILY HISTORY: Please see list REVIEW OF ORGAN SYSTEMS: CONSTITUTIONAL: No reports of fevers or chills. HEENT: Denies any troubles with the vision or hearing. ENDOCRINE: No reports of hypothyroidism. No diabetes. RESPIRATORY: No recent pneumonias. CARDIOVASCULAR: Denies chest pain or palpitations GI: No blood in stools or constipation. MUSCULOSKELETAL: Has occasional joint pain including back pain. NEURO: No seizure disorders or headaches. No recent stroke. PSYCH: No depression or suicidal ideation. GENITOURINARY: No active blood in urine. No urinary hesitancy. HEMATOLOGIC: No personal or family history of DVTs or pulmonary emboli. SKIN: No skin cancer. PHYSICAL EXAM: VITAL SIGNS: Afebrile vital signs stable GENERAL: Well-developed pleasant in no acute distress. HEENT: No scleral icterus. Extraocular movements grossly intact. Moist buccal mucosa. NECK: Supple without lymphadenopathy. CHEST: Unlabored respirations. Equal bilateral excursions. CARDIOVASCULAR: Regular rate regular rhythm rhythm. Distal 2+ pulses. ABDOMEN: Soft, nondistended. Tender along the epigastrium and right upper quadrant. MUSCULOSKELETAL: No clubbing, cyanosis, or edema. NEURO: Cranial nerves II to XII within normal limits. No focal or lateralizing signs. PSYCH: Alert and oriented to person, place and time. SKIN: Well-perfused good skin turgor. ASSESSMENT: 1. Epigastric and right upper quadrant abdominal pain 2. Chronic cholecystitis 3. Symptomatic gallstones. PLAN: 1. Will need a robotic cholecystectomy possible open. Benefits and risks were described. 2. Heparin for DVT prophylaxis 5000 units. 3. Antibiotic prophylaxis. 4. CBC and CMP on day of procedure 5. Non-narcotic pre and post op pain management reviewed. 6. Indocyanine green for biliary imaging. Past Medical History Past Medical History: No Reported History Additional Past Medical History / Comment(s): Low vitamin D. Fibromyalgia. History of Any Multi-Drug Resistant Organisms: MRSA Date of last positivie culture/infection: 2010 MDRO Source:: left buttock Past Surgical History: Orthopedic Surgery Additional Past Surgical History / Comment(s): RT GREAT TOE PIN AND BUNIONECTO MY. COLONOSCOPY Past Anesthesia/Blood Transfusion Reactions: No Reported Reaction Smoking Status: Never smoker - Past Family History Mother Family Medical History: Asthma Additional Family Medical History / Comment(s): Cardiac valve problem. Father Family Medical History: Hypertension Additional Family Medical History / Comment(s): Great aunt had breast cancer. Medications and Allergies Home Medications Medication Instructions Recorded Confirmed Type Cholecalciferol (Vitamin D3) 10,000 unit PO HS 07/13/19 03/31/24 History [Vitamin D3] Yynvqf-Kbimhgpf-Ettg 1 tab PO DIRECTED 03/31/24 03/31/24 History Pregabalin [Lyrica] 150 mg PO DAILY 03/31/24 03/31/24 History Allergies Allergy/AdvReac Type Severity Reaction Status Date / Time amoxicillin Allergy Rash/Hives Verified 03/31/24 08:46 mold Allergy Rash/Hives Verified 03/31/24 08:46 tomato Allergy Rash/Hives Verified 03/31/24 08:46 prochlorperazine edisylate AdvReac Severe Anxiety Verified 03/31/24 08:46 [From Compazine] prochlorperazine maleate AdvReac Severe Anxiety Verified 03/31/24 08:46 [From Compazine] Milk Containing Products AdvReac Nausea & Verified 03/31/24 08:46 (Dairy) Vomiting & [Milk Containing Products] Diarrhea
[~2024-04-01 12:47] MED LIST changes: +HYDROmorphone 0.5 MG/0.5 ML SYRINGE IVP PRN; +INDOCYANINE GREEN 25 MG VIAL IV STA; +MIDAZOLAM 2 MG/2 ML VIAL IV PRN; +SCOPOLAMINE 1 MG/72 HR PATCH TRANSDERM STA; +TAMSULOSIN 0.4 MG CAP.ER.24H PO STA
[2024-04-01 13:08] VITALS: RESP 16
[2024-04-01] MEDS: LACTATED RINGERS 1,000 ML IV SCH (13:20)
[2024-04-01] MEDS: DEXAMETHASONE SOD PHOSPHATE 4 MG/ML 1 ML VIAL IVP ONE (13:31)
[2024-04-01] MEDS: ONDANSETRON 4 MG/2 ML VIAL IVP PRN (13:31)
[2024-04-01] MEDS: ACETAMINOPHEN TAB 500 MG TAB PO PRN (13:31)
[2024-04-01] MEDS: HEPARIN SODIUM,PORCINE 5,000 UNIT/ML 1 ML VIAL SQ PRN (13:32)
[2024-04-01 13:35] LABS: Basophils # (A) 0.1 k/uL (0-0.2); Basophils % (A) 1 %; Eosinophils # (A) 0.1 k/uL (0-0.7); Eosinophils % (A) 2 %; HCT 40.1 % (34.0-46.0); HGB 13.6 gm/dL (11.4-16.0); Lymphocytes # (A) 1.4 k/uL (1.0-4.8); Lymphocytes % (A) 17 %; MCH 27.9 pg (25.0-35.0); MCHC 33.9 g/dL (31.0-37.0); MCV 82.1 fL (80.0-100.0); Mean Platelet Volume 7.3; Monocytes # (A) 0.4 k/uL (0-1.0); Monocytes % (A) 4 %; Neutrophils # (A) 6.4 k/uL (1.3-7.7); Neutrophils % (A) 76 %; Platelet Count 247 k/uL (150-450); RBC 4.89 m/uL (3.80-5.40); RDW 13.3 % (11.5-15.5); WBC 8.4 k/uL (3.8-10.6)
[2024-04-01] MEDS: SCOPOLAMINE 1 MG/72 HR PATCH TRANSDERM ONE (13:37)
[2024-04-01] MEDS: LIDOCAINE 1%-EPI 1:100,000 20 ML VIAL SQ ONE ×2 (13:44→14:25)
[2024-04-01] MEDS ORDERED: SUCCINYLCHOLINE CHLORIDE 200 MG/10 ML VIAL IV ONE (13:46)
[2024-04-01] MEDS ORDERED: NEOSTIGMINE 1 MG/ML 10 ML VIAL ONE (13:46)
[2024-04-01] MEDS ORDERED: ROCURONIUM 10 MG/ML (5 ML VIAL) IV ONE (13:46)
[2024-04-01] MEDS ORDERED: fentaNYL (PF) 50 MCG/ML 2 ML AMP ONE (13:46)
[2024-04-01] MEDS ORDERED: GLYCOPYRROLATE 0.2 MG/ML 2 ML VIAL ONE (13:46)
[2024-04-01] MEDS ORDERED: KETOROLAC 30 MG/ML 1 ML VIAL ONE (13:46)
[2024-04-01] MEDS ORDERED: PHENYLEPHRINE 10 MG/ML VIAL ONE (13:46)
[2024-04-01] MEDS ORDERED: LIDOCAINE 1% INJ 10MG/ML (20 ML MDV) ONE (13:46)
[2024-04-01] MEDS ORDERED: MIDAZOLAM 2 MG/2 ML VIAL ONE (13:46)
[2024-04-01] MEDS ORDERED: PROPOFOL 10 MG/ML 20 ML VIAL IV ONE (13:46)
[2024-04-01 14:11] LABS: ALT 21 U/L (4-34); AST 22 U/L (14-36); African American GFR (CKD) >90 (>60 ml/min/1.73 sqM); Albumin 4.3 g/dL (3.5-5.0); Alkaline Phosphatase 84 U/L (38-126); Anion Gap 7 mmol/L; Blood Urea Nitrogen 18 mg/dL (7-17); Calcium 9.5 mg/dL (8.4-10.2); Carbon Dioxide 24 mmol/L (22-30); Chloride 109 mmol/L (98-107); Glucose 104 mg/dL (74-99); Non-African American GFR(CKD) >90 (>60 ml/min/1.73 sqM); Potassium 3.5 mmol/L (3.5-5.1); Sodium 140 mmol/L (137-145); Total Bilirubin 0.6 mg/dL (0.2-1.3); Total Protein 7.1 g/dL (6.3-8.2)
[2024-04-01 15:19] VITALS: TEMP 97.4
--- NOTE | 2024-04-01 15:33 | P.OP ---
Date of Procedure: 04/01/24 Description of Procedure: SURGEON: JOELLE MILES MD PREOPERATIVE DIAGNOSES: 1. Symptomatic gallstones 2. Chronic cholecystitis 3. Morbid obesity due to excess calories, BMI 30.4 4. Migraines 5. Fibromyalgia 6. History of MRSA POSTOPERATIVE DIAGNOSES: 1. Symptomatic gallstones 2. Chronic cholecystitis 3. Morbid obesity due to excess calories, BMI 30.4 4. Migraines 5. Fibromyalgia 6. History of MRSA 7. Peritoneal adhesions, right upper quadrant OPERATION: 1. Robotic-assisted da Mira Xi laparoscopic lysis of adhesions over 50% of the case 2. Robotic-assisted da Mira Xi laparoscopic cholecystectomy, multiport with FIREFLY ESTIMATED BLOOD LOSS: 5 mL. SPECIMENS REMOVED: Gallbladder. COMPLICATIONS: None. OPERATIVE FINDINGS: 1. Moderate scarring over entire gallbladder with peritoneal adhesions, pericholecystic with features of chronic cholecystitis INDICATIONS: The patient is a 53-year-old female who presents with symptomatic gallstones. Robotic assisted laparoscopic approach was described. Benefits and risks of the procedure including but not limited to bleeding, infection, injury to the biliary tree was described. Informed consent was obtained. DESCRIPTION OF PROCEDURE: Patient was brought to the operating room, placed in supine position. After general induction, the abdomen had been prepped and draped in standard sterile fashion. The robotic da Mira XI system was primed. After a timeout protocol was performed, the patient had been prepped and draped in standard sterile fashion. The patient was injected with indocyanine green. A 5 mm 0 degrees laparoscopic trocar entry was performed along the left upper quadrant. The abdomen insufflated to 15 mmHg pressure which was tolerated well. Diagnostic laparoscopy demonstrated no injury to bowel viscera or mesentery. The liver surface was unremarkable. Next, two 8 mm robotic ports were placed along the right upper abdomen. The camera 8-mm port was maintained along the epigastrium. Another 8 mm port was placed along the left upper abdominal wall after exchanging the 5 mm port. Please note that the ports were placed at least 10 to 15 cm away from the target anatomy of the gallbladder. The robot was docked along the left lateral abdomen. The patient was repositioned in reverse Trendelenburg position. Using a grasper for arm 3, a grasper for arm 4, including hook cautery for arm 1, the robotic system was docked and primed as described. Instruments were interchanged by the human services assistant including hook cautery, Bovie cautery and clip appliers. I had sat at the console. The gallbladder was scarred with peritoneal adhesions. Lysis of adhesions was performed to free the gallbladder from the surrounding tissues using hook artery for over 50% of time the case. Next attention was brought to the infundibulum and cystic structures. The infundibulum and cystic duct were dissected free from surrounding tissues. The cystic duct was isolated. FIREFLY was used to identify the cystic artery and cystic structures. A critical view of safety was obtained. Large PLASTIC clips were used throughout the entire case. Using a clip newspaper editor, 2 clips were placed at the junction of the infundibulum and cystic duct. The cystic duct was divided between clips. Next, the cystic artery was similarly clipped and cauterized. Electro-Bovie cautery was used to remove the gallbladder from the hepatic fossa. Hemostasis was checked and found to be adequate. The robot was undocked. I re-scrubbed into the case. Using a 10 mm Endo Catch bag via the left upper quadrant incision, the specimen was removed from the abdominal cavity. All pneumoperitoneum instruments were evacuated from the abdominal cavity. The incisions were reapproximated using 4-0 Monocryl in an interrupted subcuticular fashion. Fascial defects were less than 8 mm in size. Please note along the trocar sites, local anesthetic was placed as a field block prior to insertion of all instruments. Liquid glue was applied to the skin. At the end of the procedure needle, sponge, and instrument count had been verified correct by the certified surgical tech/first assistant. The patient was transferred to postanesthesia care unit in stable condition. Intraoperative films were shared with the patient's family. Plan - Discharge Summary Discharge Rx Participant: No New Discharge Prescriptions: New Acetaminophen Tab [Tylenol Tab] 1,000 mg PO Q6HR PRN #30 tablet PRN Reason: Pain Simethicone [Gas-X] 125 mg PO AC-TID PRN #20 capsule PRN Reason: Pain Ibuprofen [Motrin] 600 mg PO Q8HR PRN #30 tab PRN Reason: Pain Continue Cholecalciferol (Vitamin D3) [Vitamin D3] 10,000 unit PO HS Pregabalin [Lyrica] 150 mg PO DAILY Fdzrxr-Yffvxgme-Jhuo 1 tab PO DIRECTED Discharge Medication List Cholecalciferol (Vitamin D3) [Vitamin D3] 10,000 unit PO HS 07/13/19 [History] Phgpqc-Gvvcohsn-Fwvj 1 tab PO DIRECTED 03/31/24 [History] Pregabalin [Lyrica] 150 mg PO DAILY 03/31/24 [History] Acetaminophen Tab [Tylenol Tab] 1,000 mg PO Q6HR PRN #30 tablet 04/01/24 [Rx] Ibuprofen [Motrin] 600 mg PO Q8HR PRN #30 tab 04/01/24 [Rx] Simethicone [Gas-X] 125 mg PO AC-TID PRN #20 capsule 04/01/24 [Rx] Follow up Appointment(s)/Referral(s): Joelle Miles MD [STAFF PHYSICIAN] - 04/06/24 6:00 pm Patient Instructions/Handouts: *[facility] - Laparoscopic Cholecystectomy Discharge Instructions, *[facility] - (Anesthesia) Discharge Instructions Outpatient Surgery Activity/Diet/Wound Care/Special Instructions: TELEHEALTH - DR WILL CALL YOU BETWEEN 9 am to 8 pm Recommend low-fat diet for the next 2 days. No lifting over 10 pounds in 2 weeks until April 15March shower. No bath tub soaks for two weeks until April 15 Diet as tolerated. Use Tylenol, simethicone and ibuprofen or Aleve scheduled for the next 24-48 hours for best pain relief. Use ice along incisions for today to prevent swelling. Discharge Disposition: HOME SELF-CARE
[2024-04-01 16:39] VITALS: BP 133/84; PULSE 83
[2024-04-01] MEDS: SIMETHICONE 80 MG CHEWABLE PO STA (16:55)
== END 2024-04-01 17:17 | disposition home or self-care (01) ==
LOC: OR 12:47
PROVIDERS: ATTEND Surgery Plastic and Reconstructive Surgery
DX: K80.10 Calculus of gallbladder with chronic cholecystitis without obstruction (principal); G43.909 Migraine, unspecified, not intractable, without status migrainosus; M79.7 Fibromyalgia; K66.0 Peritoneal adhesions (postprocedural) (postinfection); E66.01 Morbid (severe) obesity due to excess calories; Z68.30 Body mass index [BMI] 30.0-30.9, adult; Z98.890 Other specified postprocedural states; Z82.49 Family history of ischemic heart disease and other diseases of the circulatory system; Z80.3 Family history of malignant neoplasm of breast; Z79.899 Other long term (current) drug therapy; Z88.8 Allergy status to other drugs, medicaments and biological substances; Z86.14 Personal history of Methicillin resistant Staphylococcus aureus infection; Z88.0 Allergy status to penicillin
CPT/HCPCS: 47563; 88304; 80053; 85025; J2250; J0330; J1644; J1100; J2710; J0690; J2405; J2001; J3010; J1885; J2704; J2371

== ENCOUNTER 2025-03-22 11:18 | Emergency (ER) | payer OTHER ==
[2025-03-22 11:25] VITALS: RESP 18
--- NOTE | 2025-03-22 11:45 | ED ---
Back Pain HPI - General Chief Complaint: Back Pain/Injury Stated Complaint: back pain Time Seen by Provider: 03/22/25 11:31 Source: patient, RN notes reviewed Mode of arrival: ambulatory Limitations: no limitations - History of Present Illness Initial Comments: This is a 54-year-old female who presents to the emergency department for low back pain. Patient states that she was moving a flower pot yesterday and had instant pain in the right lower back. States that she felt like something shifted and she has had swelling over that area as well. She also has pain going down the right leg. She does have a history of sciatica, but states that this almost feels worse. Denies any loss of bowel/bladder control or saddle anesthesia. States that Toradol usually works the best for her. She does also have an order with her for an x-ray of her sinuses. Her PCP ordered this so they can refer her to ENT and she was hoping she could get this done today as well. MD Complaint: back pain - Related Data Home Medications Medication Instructions Recorded Confirmed Cholecalciferol (Vitamin D3) 10,000 unit PO HS 07/13/19 03/31/24 [Vitamin D3] Xtelfx-Tfcjbbqm-Ubtb 1 tab PO DIRECTED 03/31/24 03/31/24 Pregabalin [Lyrica] 150 mg PO DAILY 03/31/24 03/31/24 Previous Rx's Medication Instructions Recorded Acetaminophen Tab [Tylenol Tab] 1,000 mg PO Q6HR PRN #30 tablet 04/01/24 Ibuprofen [Motrin] 600 mg PO Q8HR PRN #30 tab 04/01/24 Simethicone [Gas-X] 125 mg PO AC-TID PRN #20 capsule 04/01/24 Ketorolac [Toradol] 10 mg PO Q6HR PRN #15 tab 03/22/25 Lidocaine 5% Patch [Lidoderm 5% 1 patch TOPICAL DAILY PRN #30 patch 03/22/25 Patch] methocarbamoL [Robaxin-750] 1,500 mg PO TID PRN #30 tab 03/22/25 Allergies Allergy/AdvReac Type Severity Reaction Status Date / Time amoxicillin Allergy Rash/Hives Verified 03/22/25 11:25 mold Allergy Rash/Hives Verified 03/22/25 11:25 tomato Allergy Rash/Hives Verified 03/22/25 11:25 prochlorperazine edisylate AdvReac Severe Anxiety Verified 03/22/25 11:25 [From Compazine] prochlorperazine maleate AdvReac Severe Anxiety Verified 03/22/25 11:25 [From Compazine] Milk Containing Products AdvReac Nausea & Verified 03/22/25 11:25 (Dairy) Vomiting & [Milk Containing Products] Diarrhea Review of Systems ROS Statement: Those systems with pertinent positive or pertinent negative responses have been documented in the HPI. ROS Other: All systems not noted in ROS Statement are negative. Past Medical History Past Medical History: No Reported History Additional Past Medical History / Comment(s): Low vitamin D. Fibromyalgia. History of Any Multi-Drug Resistant Organisms: MRSA Date of last positivie culture/infection: 2010 MDRO Source:: left buttock Past Surgical History: Orthopedic Surgery Additional Past Surgical History / Comment(s): RT GREAT TOE PIN AND BUNIONECTOMY. COLONOSCOPY Past Anesthesia/Blood Transfusion Reactions: No Reported Reaction Past Psychological History: No Psychological Hx Reported Smoking Status: Never smoker - Past Family History Mother Family Medical History: Asthma Additional Family Medical History / Comment(s): Cardiac valve problem. Father Family Medical History: Hypertension Additional Family Medical History / Comment(s): Great aunt had breast cancer. General Exam Limitations: no limitations General appearance: alert, in no apparent distress Head exam: Present: atraumatic, normocephalic, normal inspection Respiratory exam: Present: normal lung sounds bilaterally. Absent: respiratory distress, wheezes, rales, rhonchi, stridor Cardiovascular Exam: Present: regular rate, normal rhythm Back exam: Present: other (Tenderness to palpation over the right lower back) Neurological exam: Present: alert, oriented X3, CN II-XII intact Psychiatric exam: Present: normal affect, normal mood Skin exam: Present: warm, dry, intact, normal color. Absent: rash Course Vital Signs 03/22/25 03/22/25 11:22 13:28 Temperature 97.8 F 98.1 F Pulse Rate 89 71 Respiratory 18 18 Rate Blood Pressure 120/83 119/75 O2 Sat by Pulse 99 98 Oximetry Medical Decision Making - Medical Decision Making This is a 54-year-old female who presents to the emergency department for back pain. Was pt. sent in by a medical professional or institution? @ -No Did you speak to anyone other than the patient for history? @ -No Did you review nursing and triage notes? @ -Yes, and I agree, it is accurate with regards to the patient's symptoms. Were old charts reviewed? @ -No Differential Diagnosis? @ -Differential Back Pain: Strain, zoster, cauda equina syndrome, epidural abscess, vertebral osteomyelitis, discitis, fracture, subluxation, disc herniation, DJD, spinal stenosis, dissection, AAA, pancreatitis, peptic ulcer disease, pyelonephritis, kidney stone, this is not meant to be an all-inclusive list. EKG interpreted by me (3pts min.)? @ -Not obtained X-rays interpreted by me (1pt min.)? @ -X-ray of the lumbar spine obtained. My interpretation identifies no acute fractures. X-ray of the sinuses obtained. My interpretation identifies normal aeration of the sinuses. CT interpreted by me (1pt min.)? @ -Not obtained U/S interpreted by me (1pt. min.)? @ -Not obtained What testing was considered but not performed? (CT, X-rays, U/S, labs)? Why? @ -None What meds were considered but not given? Why? @ -None Did you discuss the management of the patient with other professionals? @ -No Did you reconcile home meds? @ -No Was smoking cessation discussed for >3mins.? @ -No Was critical care preformed (if so, how long)? @ -No Were there social determinants of health that impacted care today? How? (Homelessness, low income, unemployed, alcoholism, drug addiction, transportation, low edu. Level, literacy, decrease access to med. care, long term, rehab)? @ -No Was there de-escalation of care discussed even if they declined? (Discuss DNR or withdrawal of care, Hospice)? @ -No What co-morbidities impacted this encounter? (DM, HTN, Smoking, COPD, CAD, Cancer, CVA, Hep., AIDS, mental health diagnosis, sleep apnea, morbid obesity)? @ -DDD Was patient admitted / discharged? @ -Discharged. X-ray of the lumbar spine obtained revealing no acute process. X-ray of the paranasal sinuses obtained due to patient having the lab order. No acute process was identified on this either. Symptoms were well-controlled in the emergency department. She had no red flag signs or symptoms. Given the radicular nature, we discussed treatment with steroids. However she advised that Toradol tends to work very well for her and she has never done steroid treatment in the past. Toradol subsequently prescribed for further management along with lidocaine patches and Robaxin. Patient discharged home in stable condition. Case discussed with ED attending Dr. Trujillo. Return precautions reviewed in depth, the patient is instructed to return to the emergency department with any new, worsening, or concerning symptoms. Patient verbalized understanding. Undiagnosed new problem with uncertain prognosis? @ -None Drug Therapy requiring intensive monitoring for toxicity (Heparin, Nitro, Insulin, Cardizem)? @ -None Were any procedures done? @ -None Diagnosis/symptom? @ -Lumbar strain Acute, or Chronic, or Acute on Chronic? @ -Acute Uncomplicated (without systemic symptoms) or Complicated (systemic symptoms)? @ -Uncomplicated Side effects of treatment? @ -None Exacerbation, Progression, or Severe Exacerbation] @ -Not applicable Poses a threat to life or bodily function? @ -No - Radiology Data Radiology results: report reviewed, image reviewed Disposition Clinical Impression: Strain of lumbar region Disposition: HOME SELF-CARE Instructions (If sedation given, give patient instructions): Low Back Strain (ED) Additional Instructions: Return to the emergency department with any new, worsening, or concerning symptoms. Take the Toradol with Tylenol as needed for pain relief. If you choose to take the Toradol, do not take any other anti-inflammatories such as ibuprofen, take one or the other. Take the Robaxin as 1 to 2 tablets up to 3-4 times daily. You can also apply the lidocaine patches daily. Follow up with your primary care provider in 1-2 days. Prescriptions: Lidocaine 5% Patch [Lidoderm 5% Patch] 1 patch TOPICAL DAILY PRN #30 patch PRN Reason: Pain methocarbamoL [Robaxin-750] 1,500 mg PO TID PRN #30 tab PRN Reason: Pain Ketorolac [Toradol] 10 mg PO Q6HR PRN #15 tab PRN Reason: Pain Is patient prescribed a controlled substance at d/c from ED?: No Referrals: Catie Blackmon MD [Primary Care Provider] - 1-2 days Time of Disposition: 12:55
[2025-03-22] MEDS: KETOROLAC 15 MG/ML 1 ML VIAL IVP STA (12:18)
[2025-03-22] MEDS: ORPHENADRINE 30 MG/ML 2 ML VIAL IVP STA (12:19)
[2025-03-22] MEDS: LIDOCAINE 4% PATCH TOPICAL ONE (12:20)
--- NOTE | 2025-03-22 12:20 | XR ---
EXAMINATION TYPE: XR sinus INDICATION: Patient age:Female; 54 years old; Reason for study: Sinus congestion; [facility]. pain COMPARISON: CT facial bones and brain 10/07/2019 TECHNIQUE: The sinuses were evaluated in 4 projections. FINDINGS: The anterior nasal spine has a normal radiographic appearance as well. The nasal septum projects a midline appearance. The paranasal sinuses demonstrates normal aeration. 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 IMPRESSION: Normal aeration of the paranasal sinuses. [facility], , 03/22/2025 12:17 PM
--- NOTE | 2025-03-22 12:21 | XR ---
EXAMINATION TYPE: XR lumbar spine 2 or 3V DATE OF EXAM: 03/22/2025 CLINICAL HISTORY: pain TECHNIQUE: Three views of the lumbar spine are submitted. COMPARISON: MR lumbar spine 04/18/2017, lumbosacral spine radiograph 03/12/2017 FINDINGS: There are 5 lumbar type vertebral bodies identified. No acute fracture or dislocation. Vertebral body heights are within normal limits. No spondylolisthesis. Straightening of the normal lumbar lordosis. Mild multilevel displacement with endplate sclerosis and anterior osteophytosis. The overlying sof t tissue appears unremarkable. IMPRESSION: 1. No acute fracture or dislocation is seen in the lumbar spine. 2. Mild multilevel degenerative disc disease. [facility], , 03/22/2025 12:19 PM
[2025-03-22] MEDS: DEXAMETHASONE SOD PHOSPHATE 10 MG/ML 1 ML VIAL IVP STA (12:22)
[2025-03-22] MEDS: HYDROmorphone 1 MG/ML 1 ML SYRINGE IVP STA (12:23)
[2025-03-22 13:30] VITALS: BP 119/75; PULSE 71; TEMP 98.1
== END 2025-03-22 13:30 | disposition home or self-care (01) ==
LOC: EC 11:18
DX: S39.012A Strain of muscle, fascia and tendon of lower back, initial encounter (principal); M51.369 Other intervertebral disc degeneration, lumbar region without mention of lumbar back pain or lower extremity pain; Z88.0 Allergy status to penicillin; Z88.3 Allergy status to other anti-infective agents; Z91.011 Allergy to milk products; Z91.018 Allergy to other foods; Z77.120 Contact with and (suspected) exposure to mold (toxic); W22.8XXA Striking against or struck by other objects, initial encounter
CPT/HCPCS: 70220; 72100; 99283; 96374; 96375; J1100; J2360; J1171; J1885